=== PATIENT | male | born 1985 | race Caucasian/White ===

== ENCOUNTER 2019-07-27 15:26 | Emergency (ER) | payer OTHER ==
[~2019-07-27] VITALS: Ht 180.3 cm; Wt 75.0 kg
--- NOTE | 2019-07-27 15:42 | NUR ---
POLICE REPORT [id number]
[2019-07-27] MEDS ORDERED: ondansetron 4mg rapidly disintigrating tab PO ONE (17:10)
[2019-07-27] MEDS ORDERED: acetaminophen 325mg tablet PO ONE (17:10)
[2019-07-27] MEDS ORDERED: ibuprofen tablet 400 MG TABLET PO ONE (17:10)
[2019-07-27] MEDS ORDERED: ONDA4TAB6 PO (17:23)
--- NOTE | 2019-07-27 17:23 | NUR ---
dr rodriguez at [facility], dr persaud removed c-collar.
--- NOTE | 2019-07-27 17:29 | NUR ---
PT OFFERED ICE PACK, HOWEVER PT REFUSED
[2019-07-27 17:40] VITALS: BP 114/73
== END 2019-07-27 17:44 | disposition home or self-care (01) ==
LOC: ER 15:27
DX: S06.0X0A Concussion without loss of consciousness, initial encounter (principal); S16.1XXA Strain of muscle, fascia and tendon at neck level, initial encounter; Z79.899 Other long term (current) drug therapy; V49.49XA Driver injured in collision with other motor vehicles in traffic accident, initial encounter; Y93.89 Activity, other specified; Y92.488 Other paved roadways as the place of occurrence of the external cause; Y99.8 Other external cause status
CPT/HCPCS: 99284

== ENCOUNTER 2023-06-01 09:04 | Emergency (ER) | payer MEDICAID ==
[~2023-06-01] VITALS: Ht 180.3 cm; Wt 63.6 kg
[~2023-06-01 09:04] MED LIST: ONDA4TAB6 PO
[2023-06-01 09:39] VITALS: BP 113/75; PULSE 65; TEMP 97.7; O2SAT 99
[2023-06-01] MEDS ORDERED: AMOX-117 PO (11:27)
[2023-06-01] MEDS ORDERED: ketorolac trometh inj. 60 MG/2 ML VIAL IM ONE (11:35)
[2023-06-01 11:43] VITALS: RESP 16
== END 2023-06-01 11:56 | disposition home or self-care (01) ==
LOC: ER 09:06
DX: J32.9 Chronic sinusitis, unspecified (principal); Z20.822 Contact with and (suspected) exposure to COVID-19; G43.909 Migraine, unspecified, not intractable, without status migrainosus; Z79.899 Other long term (current) drug therapy
CPT/HCPCS: 36415; 87502; 87503; 87811; 96372; 99283; J1885

== ENCOUNTER 2023-07-09 19:55 | Emergency (ER) | payer MEDICAID, OTHER ==
[~2023-07-09] VITALS: Ht 180.3 cm; Wt 69.5 kg
[2023-07-09 20:01] VITALS: BP 122/81; PULSE 54; TEMP 98.9; O2SAT 99
[2023-07-09] MEDS ORDERED: HYDROcodone/acetaminophen 5mg/325mg tablet PO ONE (21:50)
[2023-07-09] MEDS ORDERED: HYDR-3965 PO (22:16)
[2023-07-09 22:39] VITALS: RESP 18
== END 2023-07-09 22:39 | disposition home or self-care (01) ==
LOC: ER 19:56
DX: S67.195A Crushing injury of left ring finger, initial encounter (principal); S62.605A Fracture of unspecified phalanx of left ring finger, initial encounter for closed fracture; Z79.899 Other long term (current) drug therapy; X58.XXXA Exposure to other specified factors, initial encounter; Y93.89 Activity, other specified; Y92.89 Other specified places as the place of occurrence of the external cause; Y99.8 Other external cause status
CPT/HCPCS: 73110; 73130; 99284